=== PATIENT | female | born 1965 | race Caucasian/White ===

== ENCOUNTER 2018-05-14 06:54 | Day surgery (SDC) | payer OTHER ==
[~2018-05-14] VITALS: Ht 172.7 cm; Wt 97.0 kg
[2018-05-14] MEDS ORDERED: SODIUM CHLORIDE 0.9% 1,000 ML IV SCH (07:29)
[2018-05-14 07:46] VITALS: BP 108/77
[2018-05-14] MEDS ORDERED: LIDOCAINE-MPF 1%, 5ML ONE (08:31)
== END 2018-05-14 13:20 | disposition home or self-care (01) ==
LOC: OUT 06:54 → EDSTATUS 09:00 → OUT 13:20
PROVIDERS: ATTEND Specialist
DX: G96.0 Cerebrospinal fluid leak (principal); M54.2 Cervicalgia; Z88.0 Allergy status to penicillin; Z88.8 Allergy status to other drugs, medicaments and biological substances; Z87.891 Personal history of nicotine dependence
CPT/HCPCS: 62284; 72126; 72129; 72132; Q9965